=== PATIENT | female | born 1995 ===

== ENCOUNTER 2021-01-30 11:48 | Emergency (ER) | payer OTHER ==
[~2021-01-30] VITALS: Ht 170.2 cm; Wt 89.8 kg
[2021-01-30] MEDS ORDERED: PRENA1 TRUE CO1 EACH (11:58)
== END 2021-01-30 16:20 | disposition home or self-care (01) ==
LOC: ER 11:48
DX: U07.1 COVID-19 (principal); B34.9 Viral infection, unspecified

== ENCOUNTER 2021-04-25 20:55 | Outpatient (CLI) | payer OTHER ==
[~2021-04-25 20:55] MED LIST: PRENA1 TRUE CO1 EACH
== END 2021-04-26 10:22 | disposition home or self-care (01) ==
LOC: OBS/DEL 20:55
PROVIDERS: ATTEND Specialist
DX: O26.893 Other specified pregnancy related conditions, third trimester (principal); R10.2 Pelvic and perineal pain; Z3A.29 29 weeks gestation of pregnancy

== ENCOUNTER 2021-06-27 12:22 | Inpatient (IN) | payer OTHER ==
[~2021-06-27] VITALS: Ht 170.2 cm; Wt 107.0 kg
[2021-07-08] MEDS ORDERED: CEFUROXIME500 MG PO (08:11)
[2021-07-08] MEDS ORDERED: IBU600 MG PO (08:11)
== END 2021-07-08 11:50 | DRG 787 ==
LOC: LDR 07-01 19:13 → O/R 07-02 16:45 → OB/GYN 07-02 17:31 → SURH 07-09 13:00
PROVIDERS: ADMIT Specialist; ATTEND Specialist
PROC: 3E033VJ Introduction of Other Hormone into Peripheral Vein, Percutaneous Approach (ICD-10-PCS; 2021-07-01)
PROC: 4A1HXFZ Monitoring of Products of Conception, Cardiac Rhythm, External Approach (ICD-10-PCS; 2021-07-01)
PROC: 10D00Z1 Extraction of Products of Conception, Low, Open Approach (ICD-10-PCS; principal; 2021-07-02 19:30)
PROC: BW2110Z Computerized Tomography (CT Scan) of Abdomen and Pelvis using Low Osmolar Contrast, Unenhanced and Enhanced (ICD-10-PCS; 2021-07-03)
PROC: 30233N1 Transfusion of Nonautologous Red Blood Cells into Peripheral Vein, Percutaneous Approach (ICD-10-PCS; 2021-07-04)
PROC: BW2110Z Computerized Tomography (CT Scan) of Abdomen and Pelvis using Low Osmolar Contrast, Unenhanced and Enhanced (ICD-10-PCS; 2021-07-05)
DX: O65.9 Obstructed labor due to maternal pelvic abnormality, unspecified (principal); O90.81 Anemia of the puerperium; D62 Acute posthemorrhagic anemia; O71.7 Obstetric hematoma of pelvis; O99.893 Other specified diseases and conditions complicating puerperium; Z3A.39 39 weeks gestation of pregnancy; Z37.0 Single live birth; R31.9 Hematuria, unspecified; Z20.822 Contact with and (suspected) exposure to COVID-19
CPT/HCPCS: 72191

== ENCOUNTER 2021-07-15 10:45 | Emergency (ER) | payer OTHER ==
[~2021-07-15] VITALS: Ht 170.2 cm; Wt 90.7 kg
[~2021-07-15 10:45] MED LIST changes: +CEFUROXIME500 MG PO; +IBU600 MG PO
== END 2021-07-15 20:39 | disposition home or self-care (01) ==
LOC: ER 10:45
DX: O90.81 Anemia of the puerperium (principal); N93.8 Other specified abnormal uterine and vaginal bleeding; R53.1 Weakness; R00.2 Palpitations

== ENCOUNTER → 2021-07-22 13:08 | Outpatient (CLI) | payer OTHER | END | disposition home or self-care (01) | LOC: LAB 13:08 | PROVIDERS: ATTEND Urology | DX: N30.00 Acute cystitis without hematuria (principal) ==

== ENCOUNTER 2021-09-30 10:44 | Outpatient (CLI) | payer OTHER | END 2021-09-30 10:58 | disposition home or self-care (01) | LOC: SONOGRAMA 10:44 | PROVIDERS: ATTEND Specialist | DX: R10.2 Pelvic and perineal pain (principal) ==